=== PATIENT | male | born 1970 | race Caucasian/White ===

== ENCOUNTER 2024-04-03 18:51 | Outpatient (REF) | payer BC, SELFPAY ==
[2024-04-03 21:10] LABS: HCT 47.3 % (40.0-50.0); HGB 15.7 g/dL (13.5-17.5); MCH 30.3 pg (27.0-33.0); MCHC 33.2 % (32.0-36.0); MCV 91 fL (80-95); MPV 10.2 fL (8.0-11.0); Platelet Count 237 10^3/uL (130-400); RBC 5.19 10^6/uL (4.36-5.78); RDW 12.4 % (11.8-14.1); RDW-SD 41.4 fL
[2024-04-03 21:24] LABS: ALT 28 U/L (16-63); AST 22 U/L (15-37); Albumin 4.1 g/dL (3.4-5.0); Alkaline Phosphatase 75 U/L (46-116); Anion Gap 7.9 mmol/L (3-11); BUN 16 mg/dL (7-18); CO2 26.1 mmol/L (21.0-32.0); CREATININE 1.1 mg/dL (0.70-1.30); Calculated LDL 148 mg/dL (<100); Chloride 106 mmol/L (98-107); Cholesterol 211 mg/dL (<200); Estimated GFR 79.77 (mL/min/1.73m2); Glucose 95 mg/dL (74-106); HDL Cholesterol 54 mg/dL (40-60); Potassium 3.9 mmol/L (3.5-5.1); Sodium 140 mmol/L (136-145); Total Protein 7.6 g/dL (6.4-8.2); Triglyceride 47 mg/dL (<150)
[2024-04-03 21:28] LABS: Calcium 9.3 mg/dL (8.5-10.1)
[2024-04-04 21:37] LABS: PSA, Screening 1.9 ng/mL (<=3.5)
[2024-04-05 10:48] LABS: HSV Type 1 Ab, IgG Positive (Negative); HSV Type 2 Ab, IgG Positive (Negative)
[2024-04-05 11:18] LABS: Syphilis Serology (RPR) Negative (Negative)
[2024-04-05 11:54] LABS: Chlamydia Result Negative (Negative); GC Result Negative (Negative); HIV-1/2 Ag & Ab Screen Negative (Negative)
[2024-04-05 12:10] LABS: Hepatitis C Ab w Rflx HCV PCR Negative (Negative)
== END 2024-04-03 18:52 | disposition home or self-care (01) ==
LOC: NCHCN 18:51
PROVIDERS: Visit Provider Family Medicine
DX: R59.0 Localized enlarged lymph nodes (principal); Z13.220 Encounter for screening for lipoid disorders; Z12.5 Encounter for screening for malignant neoplasm of prostate
CPT/HCPCS: 80053; 80061; 84153; 85027; 86803; 87389; 87491; 87591; 86592; 86695; 86696

== ENCOUNTER 2024-06-07 09:14 | Day surgery (SDC) | payer BC, SELFPAY ==
[2024-06-07 09:43] VITALS: BP 123/92; PULSE 94; RESP 22; TEMP 36.6; O2SAT 97
[2024-06-07] MEDS: Lactated Ringers 1,000 ML 80 ML IV (10:07)
--- NOTE | 2024-06-07 10:51 | COLE_ITS ---
Date of service: 06/07/24 Time of Service: 10:51 Colonoscopy Report Procedure Description: PROCEDURES PERFORMED: 1. Colonoscopy with cold forceps polypectomy x2 PREOPERATIVE DIAGNOSIS: Screening colonoscopy POSTOPERATIVE DIAGNOSIS: Colon polyps SURGEON: Lara Valentino MD INDICATION for procedure: 53-year-old man due for his for screening colonoscopy. Unknown family history. No symptoms. FINDINGS: Normal terminal ileum. In the cecum there was a 3-5 mm long and skin ny sessile polyp that was removed piecemeal with cold forceps technique. There was 1 other polyp which was in the proximal rectum that was 2-3 mm in size and probably hyperplastic. There is no obvious diverticular disease anywhere. There is no significant hemorrhoid disease. SURVEILLANCE interval/FOLLOW-UP: 3 - 10 years. If sessile serrated or villous histology, then in 3 years. Otherwise, 7-10 year followup is acceptable. SPECIMENS: yes EBL: Minimal COMPLICATIONS: None QUALITY of prep: Excellent Procedure in detail: The patient gave written consent and was in agreement with the indications, the potential risks as well as the benefits of the procedure. They were taken to the endoscopy suite and laid in the left lateral decubitus position. A timeout was performed and anesthesia was administered which was tolerated well. I started the procedure. Digital rectal and visual examination was performed and grossly within normal limits. A well-lubricated flexible colonoscope was then introduced and passed without any notable difficulty all the way to the cecum identified by the ileocecal valve and the appendiceal orifice. The terminal ileum was deeply intubated and looked normal. The scope was then slowly withdrawn with the above-noted findings. The patient tolerated the procedure well and was taken to the PACU in hemodynamically stable condition.
--- NOTE | 2024-06-07 10:51 | W.PM.DSUDISC ---
Date of service: 06/07/24 Discharge Plan Disposition Patient Disposition: Home Condition: Good Discharge Details Attending Provider: Salvador Valentino Primary Care Provider: Rossi Lucero Home Meds and New Rx's Prescriptions: No Action bisacodyl 5 mg tablet,delayed release (DR/EC) 5 mg PO ONCE Qty: 4 0RF Rx Instructions: Per Colonoscopy bowel prep instructions polyethylene glycol 3350 17 gram/dose powder 238 g PO ONCE Qty: 238 0RF Rx Instructions: For Colonoscopy bowel prep, as directed by office albuterol sulfate 90 mcg/actuation HFA aerosol inhaler 2 puff inhalation Q4H PRN sildenafil 100 mg tablet 100 mg PO DAILY PRN Rx Instructions: administer 30 minutes to 4 hours before activity Discharge Instructions Additional Instructions: FINDINGS: A couple of tiny polyps were found and removed today. They are nothing to worry about. They will get tested under the microscope and we will call you with those results in a week or so which will dictate when your next colonoscopy should be done. Probably in 10 years but it could be as soon as 3 years depending on the type of polyp. Overall, nothing to worry about. Stand Alone Forms: Anesthesia Discharge Inst., Colonoscopy Post Instructions, [place] (DSU) Activity:: Activity as Tolerated Diet:: As Tolerated Discharge Orders Discharge Orders: Discharge Order (Routine); Ordered 06/07/24 Ordered By: Salvador Valentino
--- NOTE | 2024-06-07 11:02 | W.ANESPRE ---
General Info Date of Service Date Performed: 06/07/24 Height: 5 ft 9.5 in Weight: 101.5 kg Body Mass Index (BMI): 32.5 Surgical Procedure: Operation Date: 06/07/24 10:50 Proposed Procedure Side Surgeon p Colonoscopy Salvador Valentino MD Meds Allergies and Home Medications Allergies Allergy/AdvReac Type Severity Reaction Status Date / Time acetaminophen AdvReac Mild Nausea Verified 06/07/24 09:45 Home Medication ?Medication ?Instructions ?Recorded albuterol sulfate 90 mcg/actuation 2 puff inhalation Q4H PRN 04/08/24 aerosol inhaler sildenafil 100 mg tablet 100 mg PO DAILY PRN 04/08/24 bisacodyl 5 mg tablet,delayed 5 mg PO ONCE Colonoscopy Bowel 05/13/24 release Prep #4 tabs polyethylene glycol 3350 17 238 g PO ONCE #238 grams 05/13/24 gram/dose oral powder Current Visit Medications: Current Medications Generic Name Dose Route Start Last Admin Trade Name Freq PRN Reason Stop Dose Admin Ringer's Solution 1,000 mls @ 80 mls/hr 06/07/24 06:00 06/07/24 10:07 IV 06/07/24 23:59 80 mls/hr INFUSION VIKAS Administration IV Miscellaneous Supplies 1 each 06/07/24 06:00 Iv Access IV 06/07/24 23:59 DIRECTED VIAKS Sodium Chloride 0 ml 06/07/24 06:00 Normal Saline Flush 10 Ml Syr IV 06/07/24 23:59 PRN PRN Sodium Chloride 0 ml 06/07/24 06:00 Normal Saline 10 Ml Vial IJ 06/07/24 23:59 DIRECTED PRN Sterile Water 0 ml 06/07/24 06:00 Water,Injection,Sterile 10 Ml Vial IJ 06/07/24 23:59 DIRECTED PRN PFSH Active Problems Active Problems: Problem Status Onset Code Disorder of the skin and subcutaneous tissue, unspecified Acute L98.9 Medical History Medical History Erectile dysfunction Sexually transmitted infection Localized enlarged lymph nodes Lesion of skin of face Mild intermittent asthma Surgical History Surgical History Hx of wisdom tooth extraction Tobacco Smoking/Tobacco Use Status: Never Passive smoking exposure: No Alcohol Alcohol Intake: current Alcohol intake frequency: a few times a week Substance Use Substance use: Never Substance use type: does not use Vital Signs and Lab Results Vital Signs Most Recent Vital Signs in EMR: Most Recent Vital Signs Temp Pulse Resp BP Pulse Ox 36.6 C 94 H 22 123/92 H 97 06/07/24 09:43 06/07/24 09:43 06/07/24 09:43 06/07/24 09:43 06/07/24 09:43 Lab Results Blood Type / Crossmatch: No Data to Display Complete Blood Count: No Data to Display Complete Metabolic Panel: No Data to Display Liver Function Panel: No Data to Display Coagulation Panel: No Data to Display Cardiac Panel: No Data to Display Arterial Blood Gas: No Data to Display Venous Blood Gas: No Data to Display Pancreas Panel: No Data to Display Thyroid Panel: No Data to Display Infectious Disease: No Data to Display Blood Cultures: No Data to Display Toxicology Panel: No Data to Display Anesthesia Assessment and Plan Anesthesia History Personal History: No History of General Anesthesia and PONV Family History: Family History Unknown Exercise Tolerance Exercise Tolerance: Metabolic Equivalents>4 Pertinent Negatives Pertinent Negatives: No Major Cardiovascular Symptoms or Complaints and No Major Pulmonary Symptoms or Complaints Cardiac & Pulmonary Exam Cardiac Exam: Normal S1/S2 Heart Sounds Pulmonary Exam: Clear Bilateral Breath Sounds Implantable Cardiac Device Does patient have a Pacemaker or an ICD?: No Airway Exam Known Difficult Airway: No Mallampati Class: 2 Mouth Opening: Normal (> 3cm) Thyromental Distance: Greater than 3 cm Neck Range of Motion: Full ROM Neck Circumference: Normal Teeth Condition: Normal Dentition ASA Classification ASA Score: ASA 2 Emergency Case?: No NPO Status NPO Status: NPO Clears >2 hours, Solids >8 hours Anesthesia Plan Resuscitation Status: Full Code Anesthesia Technique: General Anesthesia Airway Planned: Natural Airway Monitors Used: Standard Monitors Preoperative Comments:: No active GERD symptoms
[2024-06-07 11:03] VITALS: BMI 32.5
--- NOTE | 2024-06-07 11:12 | BOWEL_PTH ---
PATIENT: Juancarlos Denise LOC: [facility] U#:[id number] AGE/SX: 53/M ROOM: RE06/07/[address]: Salvador Valentino : 1970 BED: DIS: 06/07/2024 SPEC #: [id number] RECD: 06/07/24 11:58 STATUS: NICOLE REHarriett #: [id number] SRINIVAS: 06/07/24 11:[address]: Salvador Valentino DEPT: Surgical Specimen RECD BY: Breanna Suarez Tissues: 1 - BIOPSY BOWEL 2 - BIOPSY BOWEL Procedures: GROSS AND MICRO LEVEL 4 Comments: [id number]
[2024-06-07 11:28] VITALS: BP 96/66; PULSE 88; RESP 17; TEMP 36.3; O2SAT 94
--- NOTE | 2024-06-07 11:36 | W.ANESPOSTOP ---
Postoperative Evaluation Date, Time and Location Date Performed: 06/07/24 Time Performed: 11:36 Patient Location: Day Surgery Unit Vital Signs Most Recent Imported Vital Signs: Most Recent Vital Signs Temp Pulse Resp BP Pulse Ox 36.3 C L 88 17 96/66 L 94 06/07/24 11:28 06/07/24 11:28 06/07/24 11:28 06/07/24 11:28 06/07/24 11:28 Pain Score Most Recent Pain Score: Most Recent Pain Score Pain Level 0 06/07/24 11:28 Assessment Mental Status: Awake (Alert & Oriented to Patient Baseline) Airway and Respiratory Function: Patent airway with normal (patient baseline) respiratory exam Cardiovascular Function: Hemodynamically Stable Hydration Status: Adequately Hydrated Nausea & Vomiting: No Nausea or Vomiting Pain: Pt. Denies Any Pain Peripheral Nerve Block: Patient did not receive a nerve block
[2024-06-07 11:58] VITALS: BP 119/90; PULSE 75; RESP 16; TEMP 36.5; O2SAT 97
== END 2024-06-07 11:59 | disposition home or self-care (01) ==
LOC: SUR 09:17
PROVIDERS: PCP Family Medicine; Visit Provider Student in an Organized Health Care Education/Training Program
PROC: 0DJD8ZZ Inspection of Lower Intestinal Tract, Via Natural or Artificial Opening Endoscopic (ICD-10-PCS; CPT 45378; principal; 2024-06-07 10:45)
DX: Z12.11 Encounter for screening for malignant neoplasm of colon (principal); D12.0 Benign neoplasm of cecum; K62.1 Rectal polyp
CPT/HCPCS: 45380; 88305; J2003; J2704